=== PATIENT | female | born 1965 | race Caucasian/White ===

== ENCOUNTER 2017-08-21 10:59 | Emergency (ER) | payer SELFPAY ==
--- NOTE | 2017-08-21 13:44 | ULT ---
RIGHT LOWER EXTREMITY VENOUS DOPPLER ULTRASOUND: Date: 08/21/17 COMPARISON: None. HISTORY: Swelling to right lower extremity, edema, assess for deep venous thrombosis. TECHNIQUE: Multiplanar Gaming scale sonographic imaging of the venous structures of the right lower extremity obta ined with color flow and spectral analysis. FINDINGS: The right common femoral vein, greater saphenous vein, profunda femoral vein, femoral vein, popliteal vein, and posterior tibial vein are patent. Normal blood flow, augmentation, and compression noted w ithin the deep venous system, with no evidence for deep venous thrombosis. IMPRESSION: No evidence for deep venous thrombosis of the right lower extremity. POS: [facility]
[2017-08-21 14:07] LABS: Bilirubin Negative (Negative); Blood, Urine Negative (Negative); Clarity CLEAR (Clear); Glucose, Urine (Dipstick) Negative (Negative); Leukocyte Negative (Negative); Nitrite Negative (Negative); Protein, Urine (Dipstick) Negative (Neg-Trace); Specific Gravity, Urine 1.007 (1.002-1.036); Urobilinogen 0.2 mg/dL (0.2-1.0)
[2017-08-23 20:42] LABS: Chlamydia by PCR Not Detected (NotDetected); GC by PCR Not Detected (NotDetected)
== END 2017-08-21 14:12 | disposition home or self-care (01) ==
LOC: ERS 10:59
DX: L01.00 Impetigo, unspecified (principal); I89.0 Lymphedema, not elsewhere classified; J45.909 Unspecified asthma, uncomplicated; F43.10 Post-traumatic stress disorder, unspecified; F31.9 Bipolar disorder, unspecified; F98.8 Other specified behavioral and emotional disorders with onset usually occurring in childhood and adolescence; Z87.891 Personal history of nicotine dependence; Z79.82 Long term (current) use of aspirin; Z79.899 Other long term (current) drug therapy
CPT/HCPCS: 81003; 87480; 87491; 87510; 87591; 87660

== ENCOUNTER 2017-09-18 17:39 | Emergency (ER) | payer SELFPAY ==
[2017-09-20 21:13] LABS: Chlamydia by PCR Not Detected (NotDetected); GC by PCR Not Detected (NotDetected)
== END 2017-09-18 22:43 | disposition home or self-care (01) ==
LOC: ERS 17:39
DX: N89.8 Other specified noninflammatory disorders of vagina (principal); R21 Rash and other nonspecific skin eruption; F98.8 Other specified behavioral and emotional disorders with onset usually occurring in childhood and adolescence; F31.9 Bipolar disorder, unspecified; Z87.891 Personal history of nicotine dependence
CPT/HCPCS: 87480; 87491; 87510; 87591; 87660; 99283